=== PATIENT | male | born 1945 | race Caucasian/White ===

== ENCOUNTER 2019-07-20 15:32 | Day surgery (SDC) | payer MEDICARE, MEDICAID ==
[~2019-07-20] VITALS: Ht 172.7 cm; Wt 99.9 kg
[2019-07-20] MEDS ORDERED: propofoL 200 MG/20 ML VIAL As Ordered ONE ×2 (15:41→18:02)
[2019-07-20] MEDS ORDERED: MIDAZOLAM INJ 2MG/2ML VIAL (J2250 PER 1MG) As Ordered ONE (15:41)
[2019-07-20] MEDS ORDERED: ONDANSETRON 4MG/2ML VIAL As Ordered ONE ×2 (15:41→18:55)
[2019-07-20] MEDS ORDERED: dexameTHASONE 4 MG/ML 1ML VIAL (J1100 PER 1MG) As Ordered ONE (15:41)
[2019-07-20] MEDS ORDERED: LIDOCAINE 2% 100MG/5ML SDV (FOR ANES.) As Ordered ONE (15:41)
[2019-07-20] MEDS ORDERED: KETAMINE HCL 200 MG/20 ML VIAL As Ordered ONE (15:41)
[2019-07-20] MEDS ORDERED: LR 1,000 ML IV SCH ×3 (16:00→19:00)
[2019-07-20] MEDS ORDERED: ceFAZolin SOD 2 GM in IV 1 EA IV ONE (16:00)
[2019-07-20] MEDS ORDERED: AMIODARONE HCL 360 MG/200 ML PREMIXED BAG (NEXTERONE) (J0282 PER 30MG) As Ordered ONE (16:03)
[2019-07-20] MEDS ORDERED: LIDOCAINE 1% SDV 30ML VIAL As Ordered ONE (16:03)
[2019-07-20] MEDS ORDERED: BACITRACIN PWD 50,000 UNITS VIAL As Ordered ONE (16:04)
[2019-07-20] MEDS ORDERED: ISOVUE-300 61% 50ML VIAL As Ordered ONE (16:04)
[2019-07-20] MEDS ORDERED: ATOR1TAB21 PO (16:12)
[2019-07-20] MEDS ORDERED: LISI20TA33 PO (16:12)
[2019-07-20] MEDS ORDERED: METO1TAB87 PO (16:12)
[2019-07-20] MEDS ORDERED: ESOM40CA35 PO (16:12)
[2019-07-20] MEDS ORDERED: BENZ200C70 PO (16:12)
[2019-07-20] MEDS ORDERED: CLOP75TA2 PO (16:12)
[2019-07-20] MEDS ORDERED: LEVO150T7 PO (16:12)
[2019-07-20] MEDS ORDERED: ASPI81TA26 PO (16:12)
[2019-07-20] MEDS ORDERED: TAMS1CAP17 PO (16:12)
[2019-07-20] MEDS ORDERED: LIDOCAINE 1% MDV 20ML VIAL SQ PRN (16:30)
[2019-07-20] MEDS ORDERED: fentaNYL 100 MCG/2 ML INJECTION (J3010) As Ordered ONE ×2 (17:21→18:52)
[2019-07-20] MEDS ORDERED: fentaNYL 100 MCG/2 ML INJECTION (J3010) IV PRN (19:00)
[2019-07-20] MEDS ORDERED: ONDANSETRON 4MG/2ML VIAL IV PRN (19:00)
[2019-07-20 20:10] VITALS: BP 128/78
[2019-07-20 20:40] VITALS: BP 124/80
--- NOTE | 2019-07-20 21:12 | RO ---
DATE OF PROCEDURE: 07/20/2019 PREOPERATIVE DIAGNOSES: 1. Tachy-ivelisse syndrome. 2. Paroxysmal atrial fibrillation with rapid ventricular response. POSTOPERATIVE DIAGNOSES: PROCEDURE: Implantation of permanent dual-chamber pacemaker. SURGEON/IMPLANTING SUPERVISOR COREMAKER: Kenneth George MD COMPETITIVE INTELLIGENCE MANAGER: ANESTHESIA: ANESTHESIOLOGIST: Dr. Mix CLINICAL SUMMARY: This 74-year-old resident of [place], [place], is well known to my cardiology practice with ischemic and hypertensive heart disease complicated by abnormal EKG (first-degree AV block and incomplete right bundle branch block). He had been experiencing intermittent dyspneic spells and diaphoresis even sitting at rest that was suspected to possibly be paroxysmal arrhythmia in light of frequent premature atrial contractions (PACs) on his EKG. An event monitor was placed and July 19, 2019 at 9:30 p.m. the monitoring service contacted me with an EKG strip showing atrial fibrillation and rapid ventricular response averaging 147 beats per minute (bpm). In light of this and his baseline conduction problems with sinus mechanism of 52 beats per minute with his first-degree atrioventricular (AV) block, we recommended implantation of a permanent dual-chamber pacemaker to safely allow continued negative chronotropic therapy and amiodarone anti-arrhythmic therapy. OTHER PAST MEDICAL HISTORY: Includes sarcoidosis, prior pneumonia, smoking-induced chronic obstructive pulmonary disease (COPD), hypothyroidism, obesity (BMI of 31.7), and a mild aortic aneurysm without rupture, status post coronary artery bypass graft (CABG) and multiple stenting procedures, hypertensive heart disease without heart failure. CARDINAL CARDIAC SYMPTOMS: His effort-limiting symptom is dyspnea, which has been stable. Denies orthopnea. Has been unaware of his heart action. Experiencing intermittent localized right jaw and ear discomfort the past month that may occur with his episodes breathlessness and diaphoresis. Denies actual lightheadedness or fall. No history of embolic phenomenon or claudication. On examination, he is a moderately overweight, barrel-chested, elderly male, heart rate 52 beats per minute and regular with frequent irregularities. Blood pressure 142/58 sitting, respiratory 16, body mass index (BMI) 31.7. O2 saturation 95% on room air. No pallor or cyanosis. Normal oral moisture with no central cyanosis. Edentulous. Trachea midline. Thyroid not enlarged. Jugular veins visible at the sternal angle. Increased anteroposterior chest diameter with well-healed sternotomy incision. Reduced chest excursion and air entry without inspiratory rales but obvious prolongation of expiration. Apical impulse not palpable. Heart sounds distant and irregular in light of his arrhythmia. Intermittent S4. No audible murmur. Normal carotid upstrokes and volume without bruits. Pedal pulses were symmetrical and normal, 1 mm pitting edema one-third up both lower legs. Soft, obese abdomen. EKG: Underlying sinus rhythm with atrial bigeminy, average heart rate 54 bpm. Left atrial conduction disturbance with first-degree AV block and incomplete right bundle branch block. Nonspecific ST/T-wave abnormalities. Blood work showed normal complete blood count. Electrolytes were balanced with potassium 4.3, BUN 21, creatinine 1.2, random glucose 92. Last ultrasensitive TSH was therapeutic. DESCRIPTION OF PROCEDURE: Following informed consent with the patient in the fasting state, having received Ancef 2 grams IV premedication, the patient was taken to the operating theater. Numerous skin electrodes were applied to facilitate continuous electrographic monitoring. The patient was connected to a bedside cardioverter defibrillator as a precaution in light of his history of paroxysmal atrial fibrillation. The left subclavian region was prepped and draped in the usual fashion. The skin was infiltrated with 1% Xylocaine. The left axillary vein was catheterized using the micropuncture technique. A 5 cm linear incision was made several centimeters below and parallel to the left clavicle. Dissection was then carried down to the level of the pectoralis fascia, and a pocket was fashioned below the level of the incision line. Two bipolar screw-in active fixation steroid-eluting pacing leads were then positioned to the right ventricular outflow tract and high right atrial appendage under fluoroscopic and electrocardiographic control. The right ventricular lead ([employer], model #DKE9870N/58, serial #[id number]) measurements were : Stimulation threshold 0.5V/0.4ms/impedance 518 ohms. The R wave amplitude initially measured 7.2 mV, but in the recovery room, this had increased to greater than 12 mV. The atrial lead ([employer], model #HNR0240G/52, serial #[id number]) measurements were initially: 2.3 V/0.4 ms impedance 446 ohms. P wave amplitude measured 1.0 mV. By the time we reached the recovery room, the pacing threshold had decreased to 1.0 V, and the P wave was greater than 5.0 mV. These leads were secured in position using sleeves sutured at the insertion site. They were then connected to a dual-chamber pulse generator ([employer] , model #[id number], serial #[id number]) and appropriate DDD pacing was documented. The device was placed in the pocket and secured in position with a suture through the upper right hand corner of the epoxy header. The subcutaneous tissues were approximated using a running chromic suture, and the skin was closed using marcy. A dry dressing was applied, and the patient was returned to the recovery room in good condition. No apparent intraoperative complications. Estimated blood loss was20 mL related to combination aspirin and Plavix therapies. Postoperative portable upright chest x-ray confirmed appropriate lead position with no pneumothorax. Postoperative EKG showed appropriate device function with rate 70 bpm, atrial paced beats with continued atrial bigeminy, rate averaging 78 bpm. Spontaneous AV conduction with incomplete right bundle branch block pattern. Nonspecific ST/T-wave abnormalities as preoperative tracing. Our plan is to monitor him overnight, and he will receive Ancef 1 gram IV every 8 hours for an additional three doses. We anticipate his discharge tomorrow morning.
[2019-07-20 21:40] VITALS: BP 156/80
[2019-07-20] MEDS: OMEPRAZOLE 20 MG CAP PO SCH (21:47)
[2019-07-20] MEDS: AMIODARONE 200 MG TAB (PACERONE) PO SCH (21:47)
[2019-07-20 21:48] VITALS: BP 158/80
[2019-07-20] MEDS: CARVedilol 12.5 MG TAB PO SCH (21:48)
[2019-07-20] MEDS: traMADol 50 MG TAB PO PRN (21:49)
[2019-07-20] MEDS ORDERED: TAMSULOSIN 0.4 MG CAP PO SCH (22:00)
[2019-07-20 22:40] VITALS: BP 120/78
[2019-07-20 23:40] VITALS: BP 137/67
[2019-07-21 00:40] VITALS: BP 142/72
[2019-07-21] MEDS: ACETAMINOPHEN TAB 650MG DOSE (2X325MG) PO PRN ×2 (02:24→09:25)
[2019-07-21 04:00] VITALS: BP 157/82
[2019-07-21] MEDS ORDERED: LEVOTHYROXINE 150MCG TABLET (0.15MG) PO SCH (06:00)
--- NOTE | 2019-07-21 06:32 | ECGEPIP ---
[facility] Test Date: 2019-07-20 Pat Name: GAETANO LEA Department: Room: [place] [address] Gender: Male Carton Packaging Machine Operator: CONOR : 1945 Requested By: Kenneth George Order Number: [id number] Reading MD: Shelley Frank Measurements Intervals [place] Rate: 78 P: 209 WV: 227 QRS: 30 QRSD: 90 T: 43 QT: 367 QTc: 420 Interpretive Statements ELECTRONIC ATRIAL PACEMAKER FIRST DEGREE BLOCK MODERATE ST DEPRESSION T WAVE ABN V2 V3 RIGHT VENT CONDUCTION DELAY NO PRIOR Electronically Signed on 07-21-2019 6:32:09 EDT by Shelley Frank
[2019-07-21] MEDS: traMADol 50 MG TAB PO PRN (06:50)
[2019-07-21 07:32] VITALS: BP 136/76
[2019-07-21] MEDS ORDERED: ASPIRIN 81 MG ENTERIC TAB PO SCH (09:00)
[2019-07-21 09:10] VITALS: BP 140/80
[2019-07-21] MEDS: OMEPRAZOLE 20 MG CAP PO SCH (09:11)
[2019-07-21] MEDS: AMIODARONE 200 MG TAB (PACERONE) PO SCH (09:12)
[2019-07-21] MEDS: ceFAZolin SOD 1 GM in D5W MINI-BAG PLUS 50 ML IV SCH ×3 (09:12)
[2019-07-21] MEDS: CARVedilol 12.5 MG TAB PO SCH (09:12)
[2019-07-21] MEDS ORDERED: AMIO200T3 PO (10:18)
[2019-07-21] MEDS ORDERED: CARV12.5 PO (10:18)
[2019-07-21] MEDS ORDERED: ELIQ5TAB PO (10:18)
--- NOTE | 2019-07-21 10:57 | ECGEPIP ---
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
--- NOTE | 2019-07-21 11:19 | IPN ---
CARDIOLOGY PROGRESS NOTE DATE: 07/21/2019 SUBJECTIVE: Not complaining of much incisional discomfort at this time following his pacemaker implant yesterday. He has been up in the room without lightheadedness or shortness of breath. Remains unaware of his heart action. OBJECTIVE: Obese, barrel-chested, elderly male laying comfortably with the head of the bed elevated 30 degrees. Heart rate 78 beats per minute and regular with irregularity. Blood pressure 140/80 supine. Respiratory rate 18. O2 saturation 95% on room air. Afebrile. Weight 220 pounds. Height 68 inches. BMI 33.5. No pallor or central cyanosis. Trachea midline. Neck veins were not elevated. Increased anterior posterior chest diameter with reduced chest expansion. Well-healed sternotomy incision. Heft side subclavian pacemaker incision appears to be healing. There is some ecchymotic area, but no erythema. No pedal edema. HOME HEALTH NURSE: Has atrially paced beats alternating with PACs, but these appear less on his current amiodarone and carvedilol therapies. On his current pacemaker settings, he has spontaneous AV conduction. ELECTROCARDIOGRAM (EKG): Tracing taken earlier today. Reviewed independently. Shows atrial bigeminy with appropriate atrially paced beats and sensed atrial activity with spontaneous AV conduction and narrow QRS complexes. Low voltages with poor precordial R wave progression in light of his body habitus and pulmonary problems. Nonspecific ST/T-wave abnormalities unchanged from last evening. CHEST X-RAY: PA and left lateral study reviewed independently. Shows obvious cardiomegaly with unfolded thoracic aorta. Pulmonary vessels appeared to be normal. Degree of hyperinflated lung jacobs with flattened diaphragms on the lateral projection. Dual-chamber pacemaker with stable atrial and ventricular pacing leads in the high right atrial appendage and right ventricle outflow tract. Pulse generator left subclavian region. No pneumothorax or pleural effusion. LABORATORY STUDIES: His COVID-19 study was negative. PACEMAKER INTERROGATION: Pattern Duplicator [employer] - Model Assurity, MRI compatible, [id number], serial number [id number]. Atrial electrical intracardiac electrogram measured 4.2 mV, ventricular intracardiac electrogram was greater than 12 mV, and atrial pacing threshold was 1 volt at 0.4 milliseconds and ventricular pacing threshold 0.375 volts at 0.4 milliseconds. We did adjust pacing parameters with low rate set at 70, upper tracking rate 110, atrial tachycardia detection rate 160, AV paced delays to 100 milliseconds, sensed AV delay 150 milliseconds, but he has ventricular intrinsic preference programmed at 200 milliseconds, so for the most part he will be having spontaneous AV conduction. Anticipated battery voltage 10 years life expectancy. IMPRESSION/PLAN: 1. Paroxysmal atrial fibrillation: Currently on combination carvedilol 12.5 mg twice a day and his amiodarone will be 200 mg by mouth twice a day. Eliquis 5 mg twice a day will be started 07/24/2019. He will continue on low-dose aspirin. His Plavix will be discontinued. 2. Tachy-vielisse syndrome/dual-chamber pacemaker in situ: His device is functioning appropriately. Program changes made as mentioned above in order to prolong battery longevity. I have instructed him to avoid getting his incision wet and perform only light activities of daily living with his left arm until his marcy are removed in my office in 7-10 days time. My office will be contacting him 07/24/2019 with that appointment. He has been encouraged to contact us promptly for any abnormal erythema, swelling or discharge. 3. Abnormal EKG: Stable first-degree AV block and incomplete right bundle branch block. Subtle repolarization abnormalities were also stable. 4. Coronary artery disease ([place] vessel)/post coronary artery bypass graft (CABG) and multiple percutaneous transluminal coronary angioplasties (PTCAs): The patient has remained free of symptoms to suggest myocardial ischemia. Serial EKGs show no evolutionary repolarization abnormalities. Will continue on combination protective carvedilol 12.5 mg twice a day, lisinopril 20 mg daily, atorvastatin 20 mg at bedtime and aspirin 81 mg daily. His Plavix has been discontinued as mentioned above now that he is on Eliquis. 5. Hypertensive heart disease (benign without heart failure): No symptoms or signs of congestion and current blood pressure is adequately controlled. He has been instructed to contact us should he have any questions or concerns.
[2019-07-21] MEDS ORDERED: ATORVASTATIN 20 MG TAB PO SCH (21:00)
--- NOTE | 2019-07-24 11:39 | REP ---
REASON: Status post pacemaker insertion. COMPARISON: 07/20/[address] by Dr. Knott. Dual-chamber bipolar pacemaker device status quo with appropriate appearing contiguous leads. Subtle patchy left lower lobe opacities status quo. There is mild cardiomegaly. Pleural angles are sharp. There is no change in the osseous structures. IMPRESSION: Essentially unchanged left lower lobe opacities possibly representing subsegmental atelectatic change. There is no plain radiographic evidence of a definite hiatal hernia. Consider followup. Electronically Signed by Gordy Wilder DO 07/24/2019 12:27 P
--- NOTE | 2019-08-08 07:04 | REP ---
Clinical: Status post pacemaker placement. Comparison: 11/07/2003. Findings: Dual lead pacemaker identified in satisfactory position. Cardiomegaly noted along with evidence for prior CABG. Lung jacobs demonstrate chronic changes. Medial left lower lobe/retrocardiac opacity most suggestive of large hiatal hernia although atelectasis and consolidation to the left lower lobe cannot definitively be excluded. No significant effusion. No pneumothorax. Impression: 1. Dual lead pacemaker in satisfactory position. No pneumothorax. 2. Medial left lower lobe opacity as described above. Differential diagnosis includes hiatal hernia and less likely left lower lobe atelectasis/consolidation. Electronically Signed by Gordy Knott MD 08/08/2019 06:55 A
== END 2019-07-21 11:08 | disposition home or self-care (01) ==
LOC: M SDC 15:32 → M PCU 20:10 → M SDC 07-21 11:08
PROVIDERS: ATTEND Internal Medicine Cardiovascular Disease
DX: I49.5 Sick sinus syndrome (principal); I48.0 Paroxysmal atrial fibrillation; I44.0 Atrioventricular block, first degree; I45.19 Other right bundle-branch block; I11.9 Hypertensive heart disease without heart failure; J44.9 Chronic obstructive pulmonary disease, unspecified; I25.10 Atherosclerotic heart disease of native coronary artery without angina pectoris; E03.9 Hypothyroidism, unspecified; I49.1 Atrial premature depolarization; R94.31 Abnormal electrocardiogram [ECG] [EKG]; I34.0 Nonrheumatic mitral (valve) insufficiency; I77.810 Thoracic aortic ectasia; Z95.1 Presence of aortocoronary bypass graft; Z95.5 Presence of coronary angioplasty implant and graft; Z88.5 Allergy status to narcotic agent; Z79.899 Other long term (current) drug therapy; Z79.02 Long term (current) use of antithrombotics/antiplatelets; Z79.82 Long term (current) use of aspirin; Z87.891 Personal history of nicotine dependence; Z11.59 Encounter for screening for other viral diseases
CPT/HCPCS: 33208; 71045; 71046; 76000; 93005; 96365; 96366; C1785; C1898; J0690; J2250; J2405; J3010; U0002

== ENCOUNTER → 2020-05-28 | Outpatient (REF) | payer MEDICARE, MEDICAID ==
[~2020-05-28] MED LIST: AMIO200T3 PO; ASPI81TA26 PO; ATOR1TAB21 PO; BENZ200C70 PO; CARV12.5 PO; CLOP75TA2 PO; ELIQ5TAB PO; ESOM40CA35 PO; LEVO150T7 PO; LISI20TA33 PO; METO1TAB87 PO; TAMS1CAP17 PO
[2020-05-28 18:15] LABS: FOLATE 6.7 NG/ML; PERCENT SATURATION 17.2 % (19.7-50.0)
== END ==
LOC: M LAB REF 16:58
PROVIDERS: ATTEND Internal Medicine Nephrology
DX: N40.1 Benign prostatic hyperplasia with lower urinary tract symptoms (principal); D64.9 Anemia, unspecified
CPT/HCPCS: 82607; 82728; 82746; 83550; G0103

== ENCOUNTER 2024-02-02 06:23 | Day surgery (SDC) | payer MEDICARE, MEDICAID ==
[~2024-02-02] VITALS: Ht 175.3 cm; Wt 93.9 kg
[~2024-02-02 06:23] MED LIST changes: -AMIO200T3 PO; +AMIO200T49 PO; +FERR32TA PO; +PHENYLEPHRINE 10% OPHTH SOL 5ML OD PRN
[2024-02-02] MEDS ORDERED: fentaNYL 100 MCG/2 ML INJECTION As Ordered ONE (07:22)
[2024-02-02] MEDS ORDERED: MIDAZOLAM INJ 2MG/2ML VIAL As Ordered ONE (07:22)
[2024-02-02] MEDS: OFLOXACIN 0.3 % (OCUFLOX) OPTH SOL 5ML OD ONE (07:43)
[2024-02-02] MEDS: LIDOCAINE 3.5 % 1ML OPHTH TOPICAL GEL OU ONE (07:43)
[2024-02-02] MEDS: CYCLOPENTOLATE 1% OPHTH SOLN 2ML BTL OD SCH (07:44)
[2024-02-02] MEDS: PHENYLEPHRINE 2.5% OPHTH SOL 2ML OD SCH (07:44)
[2024-02-02] MEDS: TROPICAMIDE 1% OPHTH SOLN 15ML OD SCH (07:44)
[2024-02-02] MEDS: ACETYLCHOLINE OPHTH SOLN 1% 2ML (MIOCHOL-E) As Ordered ONE (08:50)
[2024-02-02] MEDS: BSS IRRIG/VANCO(10MG)/TOBRA(5MG)/EPINEPH(1:1000-0.5CC)500ML BAG-ORONLY As Ordered ONE (08:55)
[2024-02-02] MEDS: LIDOCAINE 1% SDV 5ML VIAL As Ordered ONE (08:55)
[2024-02-02] MEDS: CEFUROXIME 1MG/0.1ML INTRACAMERAL INJ As Ordered ONE (08:55)
[2024-02-02 09:06] VITALS: BP 145/73; TEMP 97.3; O2SAT 96
== END 2024-02-02 09:20 | disposition home or self-care (01) ==
LOC: M SDC 06:23
PROVIDERS: ATTEND Ophthalmology
DX: H25.11 Age-related nuclear cataract, right eye (principal); I25.10 Atherosclerotic heart disease of native coronary artery without angina pectoris; E03.9 Hypothyroidism, unspecified; E78.00 Pure hypercholesterolemia, unspecified; Z95.0 Presence of cardiac pacemaker; N40.0 Benign prostatic hyperplasia without lower urinary tract symptoms; Z95.1 Presence of aortocoronary bypass graft; Z79.01 Long term (current) use of anticoagulants; Z79.899 Other long term (current) drug therapy; Z79.890 Hormone replacement therapy
CPT/HCPCS: 66984; J0697; J2250; J3010; V2632

== ENCOUNTER 2024-02-16 07:10 | Day surgery (SDC) | payer MEDICARE, MEDICAID ==
[~2024-02-16] VITALS: Ht 175.3 cm; Wt 95.5 kg
[~2024-02-16 07:10] MED LIST changes: +CYCLOPENTOLATE 1% OPHTH SOLN 2ML BTL OS SCH; +LIDOCAINE 3.5 % 1ML OPHTH TOPICAL GEL OU ONE; +NITR0.4S14 SL; +OFLOXACIN 0.3 % (OCUFLOX) OPTH SOL 5ML OS ONE; -PHENYLEPHRINE 10% OPHTH SOL 5ML OD PRN; +PHENYLEPHRINE 10% OPHTH SOL 5ML OS PRN; +PHENYLEPHRINE 2.5% OPHTH SOL 2ML OS SCH; +TROPICAMIDE 1% OPHTH SOLN 15ML OS SCH
[2024-02-16] MEDS ORDERED: fentaNYL 100 MCG/2 ML INJECTION As Ordered ONE (09:33)
[2024-02-16] MEDS ORDERED: MIDAZOLAM INJ 2MG/2ML VIAL As Ordered ONE (09:33)
[2024-02-16] MEDS: CEFUROXIME 1MG/0.1ML INTRACAMERAL INJ As Ordered ONE (10:53)
[2024-02-16] MEDS: BSS IRRIG/VANCO(10MG)/TOBRA(5MG)/EPINEPH(1:1000-0.5CC)500ML BAG-ORONLY As Ordered ONE (10:53)
[2024-02-16] MEDS: LIDOCAINE 1% SDV 5ML VIAL As Ordered ONE (10:53)
[2024-02-16 11:05] VITALS: BP 152/74; TEMP 97.4; O2SAT 96
== END 2024-02-16 11:19 | disposition home or self-care (01) ==
LOC: M SDC 07:10
PROVIDERS: ATTEND Ophthalmology
DX: H25.12 Age-related nuclear cataract, left eye (principal); I25.10 Atherosclerotic heart disease of native coronary artery without angina pectoris; E03.9 Hypothyroidism, unspecified; E78.00 Pure hypercholesterolemia, unspecified; N40.0 Benign prostatic hyperplasia without lower urinary tract symptoms; Z79.899 Other long term (current) drug therapy; Z79.01 Long term (current) use of anticoagulants; Z79.890 Hormone replacement therapy; Z95.0 Presence of cardiac pacemaker; Z95.1 Presence of aortocoronary bypass graft; Z88.5 Allergy status to narcotic agent; Z98.41 Cataract extraction status, right eye
CPT/HCPCS: 66984; J0697; J2250; J3010; V2632